=== PATIENT | male | born 1955 | race Caucasian/White ===

== ENCOUNTER → 2023-08-16 | Outpatient (CLI) | payer MEDICARE ==
--- NOTE | 2023-08-16 08:08 | XR ---
EXAMINATION TYPE: XR orbit detect foreign body DATE OF EXAM: 08/16/2023 COMPARISON: NONE HISTORY: Pre-MRI orbits TECHNIQUE: 3 views FINDINGS: 3 views of the orbits fail to demonstrate evidence for radiopaque foreign body. The patient is cleared for MRI. Paranasal sinuses as visualized appear to be clear. IMPRESSION: The patient is cleared for MRI.
--- NOTE | 2023-08-16 14:44 | MR ---
EXAMINATION TYPE: MR Prostate wo/w con DATE OF EXAM: 08/16/2023 9:42 AM COMPARISON: None. CLINICAL INDICATION:Male, 67 years old with history of R97.20 ELEVATED PSA; Elevated PSA. TECHNIQUE: Multi-planar, multi-sequence imaging of the pelvis is performed prior to and following the uncomplicated administration of bolus intravenous gadolinium. CONTRAST: 9 Gadavist Interpretive Criteria: PI-RADS v2.1 SERUM PSA: 10.8 on 06/25/2023. SURGICAL PATHOLOGY: No data available. FINDINGS: Prostatic dimensions: 7.1 x 7.4 x 5.7 cm. Ellipsoid Volume:156.81 (PSA density=0.07 ng/mL/mL) CENTRAL GLAND (Central and Transition Zones/CZ+TZ): Heterogenous area within the right central gland mid gland of higher somewhat ill-defined DWI signal low ADC and low T2 signal Median lobe hypertrophy with protrusion into the base of the bladder. (PI- RADS 2) PERIPHERAL ZONE (PZ): Thinning bilaterally due to BPH, No evidence of masslike abnormality, or localized perfusional hyperv ascularity, to further suggest a focus of clinically significant prostate cancer. (PI-RADS 2) SEMINAL VESICLES (SV): Symmetric and unremarkable. PERIPROSTATIC TISSUES: Unremarkable. LYMPH NODES: No enlarged pelvic lymph node. REMAINING PELVIS: Distended urinary bladder with multiple diverticula and trabecular lesions. No abnormal free or organized intrapelvic fluid collection. No pathologic bowel dilation or mural thickening. Large right inguinal hernia containing loops of large and small bowel. Small left fat-containing ingu inal hernia. OSSEOUS STRUCTURES: No suspicious osseous abnormality. IMPRESSION: 1. PI-RADS 3 lesion in the right mid central gland measuring 16 x 13 mm. Tissue sampling recommended. 2. Substantial BPH, estimated gland volume 156.81 mL. 4. Distended urinary bladder with trabeculation/diverticula likely from chronic bilateral obstruction . 5. Large right inguinal hernia containing loops of small and large bowel.
== END | disposition home or self-care (01) ==
LOC: RADMRIMAIN 07:42
PROVIDERS: ATTEND Urology
DX: R97.20 Elevated prostate specific antigen [PSA] (principal); N40.0 Benign prostatic hyperplasia without lower urinary tract symptoms; K40.90 Unilateral inguinal hernia, without obstruction or gangrene, not specified as recurrent; N32.89 Other specified disorders of bladder
CPT/HCPCS: 70030; 72197; A9585

== ENCOUNTER → 2023-09-30 | Day surgery (SDC) | payer MEDICARE ==
[2023-09-28 10:38] VITALS: BMI 27.3
--- NOTE | 2023-09-28 18:33 | P.GSHP ---
History of Present Illness H&P Date: 09/28/23 Chief Complaint: Elevated PSA level The patient is a 67-year-old white male with no family history of prostate cancer. His PSA level has been persistently elevated and was 10.80 in June 2023. Repeat PSA level in August 2023 was 5.24. He reports obstructive voiding symptoms and has been found to empty his bladder incompletely. Cystoscopy shows an obstructing prostate with a bilobar configuration, and he has been instructed to perform intermittent self-catheterization. MRI of the prostate reveals a prostate volume of 157 cc, with a PI-RADS 3 lesion within the right central zone. - Cardiovascular Cardiovascular: Reports high blood pressure - Genitourinary (Male) Genitourinary: Reports nocturia Past Medical History Past Medical History: GERD/Reflux, Hyperlipidemia, Hypertension, Prostate Disorder Additional Past Medical History / Comment(s): "The says I have a really enlarged prostate""He wants to make sure it isn't cancer." History of Any Multi-Drug Resistant Organisms: None Reported Additional Past Surgical History / Comment(s): Cystocopy Past Anesthesia/Blood Transfusion Reactions: No Reported Reaction Additional Past Anesthesia/Blood Transfusion Reaction / Comment(s): ++No hx of having anesthesia. No hx of blood transfusion. Smoking Status: Never smoker - Past Family History Brother(s) Family Medical History: Cancer Additional Family Medical History / Comment(s): 4 brothers had cancer. Esophageal, brain, lung in 2 brothers. One brother kidney cancer. Sister(s) Family Medical History: Cancer Additional Family Medical History / Comment(s): Uterine cancer. Medications and Allergies Home Medications Medication Instructions Recorded Confirmed Type Antibiotic (Unknown Dose) 1 dose PO QAM 09/28/23 09/28/23 History Aspirin EC [Ecotrin Low Dose] 81 mg PO QAM 09/28/23 09/28/23 History Atorvastatin [Lipitor] 20 mg PO QAM 09/28/23 09/28/23 History Cranberry Supp(Unknown Dose) 1 dose PO QAM 09/28/23 09/28/23 History Lisinopril-Hctz 20-25 mg 20 - 25 mg PO QAM 09/28/23 09/28/23 History [Zestoretic 20-25] Multi Vit (Unknown Dose) 1 dose PO QAM 09/28/23 09/28/23 History Tamsulosin HCl [Flomax] 0.4 mg PO HS 09/28/23 09/28/23 History Zinc (Unknown Dose) 1 dose PO QAM 09/28/23 09/28/23 History Allergies Allergy/AdvReac Type Severity Reaction Status Date / Time No Known Allergies Allergy Verified 09/28/23 11:42 Surgical - Exam - General well developed, well nourished, no distress - Respiratory normal respiratory effort - Abdomen Abdomen: soft, non tender, no guarding, no rigid, no rebound Hernia: inguinal - Genitourinary normal penis with no external lesions, testicles non-tender - Rectum Rectum: normal sphincter tone, no masses, other (Prostate enlarged and smooth) - Psychiatric oriented to time, oriented to person, oriented to place, speech is normal, memory intact Assessment and Plan (1) Elevated prostate specific antigen [PSA] Status: Acute Code(s): R97.20 - ELEVATED PROSTATE SPECIFIC ANTIGEN [PSA] SNOMED Code(s): 731152824 Plan: The patient will undergo MRI-Ultrasound fusion transrectal biopsies of the prostate. The procedure has been reviewed in detail with the patient. He has been made aware of potential risks, which include anesthesia, bleeding, and infection. He is also aware that a negative biopsy does not completely rule out prostate cancer.
[~2023-09-30] MED LIST: KETAMINE HCL IN 0.9 % NACL 50 MG/5 ML SYRINGE ONE; LEVOFLOXACIN 500MG-D5W PMX 500 MG in DEXTROSE/WATER 1 100ML.BAG IVPB STA; MIDAZOLAM 2 MG/2 ML VIAL ONE; PROPOFOL 10 MG/ML 20 ML VIAL IV ONE; fentaNYL (PF) 50 MCG/ML 2 ML AMP ONE
[2023-09-30] MEDS: LACTATED RINGERS 1,000 ML IV SCH (10:37)
[2023-09-30] MEDS: GENTAMICIN 40 MG/ML 2 ML VIAL IM PRN (10:50)
[2023-09-30 11:13] VITALS: TEMP 97.1
[2023-09-30] MEDS: LEVOFLOXACIN 750MG-D5W PMX 750 MG/150 ML BAG IVPB ONE (12:35)
--- NOTE | 2023-09-30 13:12 | P.OP ---
Date of Procedure: 09/30/23 Preoperative Diagnosis: Elevated PSA level Postoperative Diagnosis: Same Procedure(s) Performed: MRI ultrasound-guided fusion biopsies of the prostate Anesthesia: MAC Surgeon: Marino Bey Estimated Blood Loss (ml): 5 IV fluids (ml): 500 Condition: stable Disposition: PACU Indications for Procedure: The patient is a 67-year-old white male with no family history of prostate cancer. His PSA level has been persistently elevated and was 10.80 in June 2023. Repeat PSA level in August 2023 was 5.24. He reports obstructive voiding symptoms and has been found to empty his bladder incompletely. Cystoscopy shows an obstructing prostate with a bilobar configuration, and he has been instructed to perform intermittent self-catheterization. MRI of the prostate reveals a prostate volume of 157 cc, with a PI-RADS 3 lesion within the right central zone. Operative Findings: BPH. No hypoechoic lesions seen. Description of Procedure: The patient was taken to the operating room and placed in the left lateral decubitus position. ZAN revealed the prostate to be enlarged but smooth. The Ulthera transrectal ultrasound probe was placed intrarectally. It was then placed within the stand of the [employer] MRI/TRUS Fusion for Prostate Biopsy system. The prostate was imaged in both the axial and sagittal planes, revealing a prostate volume of 143.9 mL. Using the Biopty gun, 3 biopsies were obtained from the target lesion located within the right mid anterior transitional zone. The remaining 12 biopsies of the peripheral zone were obtained utilizing a standard template. Once the procedure was completed, the ultrasound probe was removed. The patient tolerated the procedure well was taken to the recovery room stable condition.
[2023-09-30 14:08] VITALS: BP 116/74; PULSE 63
[2023-09-30 14:09] VITALS: RESP 20
== END | disposition home or self-care (01) ==
LOC: OR 10:04
PROVIDERS: ATTEND Urology
DX: N40.1 Benign prostatic hyperplasia with lower urinary tract symptoms (principal); N13.8 Other obstructive and reflux uropathy; I10 Essential (primary) hypertension; E78.5 Hyperlipidemia, unspecified; K21.9 Gastro-esophageal reflux disease without esophagitis; Z80.1 Family history of malignant neoplasm of trachea, bronchus and lung; Z79.82 Long term (current) use of aspirin; Z79.899 Other long term (current) drug therapy
CPT/HCPCS: 55700; 88305; J2250; J1580; J3010; J1956; J2704

== ENCOUNTER 2023-10-27 08:01 | Day surgery (SDC) | payer MEDICARE ==
[2023-10-26 09:27] VITALS: BMI 27.2
[2023-10-27] MEDS ORDERED: HYDROmorphone 0.5 MG/0.5 ML SYRINGE IVP PRN (08:16)
[2023-10-27] MEDS ORDERED: fentaNYL (PF) 50 MCG/ML 2 ML AMP IVP PRN (08:16)
[2023-10-27] MEDS ORDERED: LIDOCAINE 1% (10MG/ML) FOR IV START INTRADERMA PRN (08:16)
[2023-10-27] MEDS: IV FLUID CONTINUATION 1,000 ML IV ONE ×2 (08:30→14:50)
[2023-10-27] MEDS: LACTATED RINGERS 1,000 ML IV SCH (08:30)
[2023-10-27] MEDS: ACETAMINOPHEN TAB 500 MG TAB PO PRN (08:49)
[2023-10-27] MEDS: ONDANSETRON 4 MG/2 ML VIAL IVP ONE (08:50)
[2023-10-27] MEDS: DEXAMETHASONE SOD PHOSPHATE 4 MG/ML 1 ML VIAL IV ONE (08:50)
[2023-10-27] MEDS: MIDAZOLAM 2 MG/2 ML VIAL IV PRN (08:57)
--- NOTE | 2023-10-27 09:11 | P.ANPRN ---
Procedure Note - Anesthesia - Nerve Block Performed Right Erector Spinae Single Time Out Performed: Yes Date of Procedure: 10/27/23 Procedure Start Time: 08:56 Procedure Stop Time: 09:01 Location of Patient: PreOp Indication: Acute Post-Operative Pain, Analgesia, Requested by Surgeon Sedation Type: Sedate with meaningful contact maintained Preparation: Sterile Prep Position: Prone Needle Types: Pajunk Needle Gauge: 21 Ultrasound used to visualize needle placement: Yes Ultrasound used to observe medication spread: Yes Injectate: 0.5% Ropivacaine (see comment for volume) (Ropiv 20 ml+decadron 4mg. AttemptX1. T11 level needle) Blood Aspirated: No Pain Paresthesia on Injection Noted: No Resistance on Injection: Normal Image Stored and Saved: Yes Events: Uneventful and Well Tolerated
[2023-10-27] MEDS: HEPARIN SODIUM,PORCINE 5,000 UNIT/ML 1 ML VIAL SQ PRN (09:17)
[2023-10-27] MEDS ORDERED: PROPOFOL 10 MG/ML 20 ML VIAL IV ONE (09:45)
[2023-10-27] MEDS ORDERED: ROPIVACAINE 5 MG/ML 30 ML VIAL ONE (09:45)
[2023-10-27] MEDS ORDERED: KETOROLAC 15 MG/ML 1 ML VIAL ONE (09:45)
[2023-10-27] MEDS ORDERED: LIDOCAINE 1% INJ 10MG/ML (20 ML MDV) ONE (09:45)
[2023-10-27] MEDS ORDERED: ePHEDrine 50 MG/ML 1 ML VIAL ONE (09:45)
[2023-10-27] MEDS ORDERED: fentaNYL (PF) 50 MCG/ML 2 ML AMP ONE (09:45)
[2023-10-27] MEDS ORDERED: NEOSTIGMINE 1 MG/ML 10 ML VIAL ONE (09:45)
[2023-10-27] MEDS ORDERED: PHENYLEPHRINE-0.9% NACL SYG 1,000 MCG/10 ML SYRINGE ONE (09:45)
[2023-10-27] MEDS ORDERED: KETAMINE HCL IN 0.9 % NACL 50 MG/5 ML SYRINGE ONE (09:45)
[2023-10-27] MEDS ORDERED: GLYCOPYRROLATE 0.2 MG/ML 2 ML VIAL ONE (09:45)
[2023-10-27] MEDS ORDERED: ROCURONIUM 10 MG/ML (5 ML VIAL) IV ONE (09:45)
[2023-10-27] MEDS ORDERED: SUCCINYLCHOLINE CHLORIDE 200 MG/10 ML VIAL IV ONE (09:45)
--- NOTE | 2023-10-27 11:02 | P.OP ---
Date of Procedure: 10/27/23 Preoperative Diagnosis: incarcerated right inguinal hernia Postoperative Diagnosis: incarcerated massive right inguinal hernia Procedure(s) Performed: open repair of incarcerated right inguinal hernia Orchiectomy Anesthesia: TRI Surgeon: Pavel Casanova Estimated Blood Loss (ml): 5 Pathology: other (right orchiectomy) Condition: stable Disposition: PACU Description of Procedure: the patient's placed on the operating table in the supine position. He received general endotracheal tube anesthesia. His abdomen was prepped and draped usual fashion. A standard hernia incision was made over the right external ring. Using blunt dissection with cautery the subcutaneous tissue divided. The fascia external oblique was then opened. The patient had a very large hernia. The cord structures and sac were brought up in the wound. The patient had a very large defect. It is set up for me orchiectomy with the hernia repair due to the size of the fascial opening. At this point the hernia sac and spermatic cord underwent a high ligation. The sac was closed with 0 Vicryl stick tie. Next a piece of Prolene mesh was placed over top of the hernia and secured with 2-0 Prolene to the shelving edge of the ilioinguinal ligament. And then Todd'stubercle. The fascia external oblique was then closed with 0 Vicryl suture. A CARLITO drains placed the scrotum and brought out through separate stab incision. Fadi's fascia was closed with 2-0 Vicryl. Skin closed frank. Patipatient tolerated procedure well. He was sent to recovery in stable condition.
[2023-10-27 11:04] VITALS: TEMP 98.6
[2023-10-27] MEDS: IV FLUID CONTINUATION 800 ML IV ONE (12:24)
[2023-10-27 12:29] VITALS: RESP 20
[2023-10-27] MEDS: TAMSULOSIN 0.4 MG CAP.ER.24H PO STA (14:19)
[2023-10-27 15:43] VITALS: BP 134/76; PULSE 76
== END 2023-10-27 15:57 | disposition home or self-care (01) ==
LOC: OR 08:01 → 4SSUR 10:58 → OR 15:57
PROVIDERS: ATTEND Surgery
DX: K40.30 Unilateral inguinal hernia, with obstruction, without gangrene, not specified as recurrent (principal); G89.18 Other acute postprocedural pain; I10 Essential (primary) hypertension; N42.9 Disorder of prostate, unspecified; Z79.899 Other long term (current) drug therapy
CPT/HCPCS: 64999; 88305; 49507; C1781; J2250; J0330; J1644; J1100; J2710; J0690; J2405; J2001; J3010; J2795; J1885; J2704; J2371

== ENCOUNTER → 2024-01-05 | Outpatient (CLI) | payer MEDICARE ==
[2024-01-05 18:22] LABS: Basophils # (A) 0.03 X 10*3/uL (0.00-0.10); Basophils % (A) 0.5 %; Eosinophils # (A) 0.11 X 10*3/uL (0.04-0.35); Eosinophils % (A) 1.8 %; HCT 37.6 % (39.6-50.0); HGB 11.9 g/dL (13.0-17.0); Lymphocytes # (A) 1.37 X 10*3/uL (0.90-5.00); Lymphocytes % (A) 22.6 %; MCH 26.7 pg (27.0-32.0); MCHC 31.6 g/dL (32.0-37.0); MCV 84.3 FL (80.0-97.0); Mean Platelet Volume 11.1 FL (9.5-12.2); Monocytes # (A) 0.49 X 10*3/uL (0.20-1.00); Monocytes % (A) 8.1 %; NRBC Per 100 WBC 0 X 10*3/uL (0.00-0.01); Neutrophils # (A) 4.05 X 10*3/uL (1.80-7.70); Neutrophils % (A) 66.8 %; Platelet Count 222 X 10*3/uL (140-440); RBC 4.46 X 10*6/uL (4.40-5.60); RDW 14.6 % (11.5-14.5); WBC 6.06 X 10*3/uL (4.50-10.00)
[2024-01-05 18:34] LABS: Appearance,Urine Cloudy (Clear); Bilirubin,Urine Negative (Negative); Blood,Urine Small (Negative); Color,Urine Yellow (Yellow); Ketones,Urine Negative (Negative); Nitrite,Urine Negative (Negative); PH, Urine 6.5; Specific Gravity,Urine 1.009 (1.001-1.030); Urobilinogen,Urine 0.2 E.U./DL
[2024-01-05 18:41] LABS: Bacteria,Urine None Seen (None Seen)
[2024-01-05 18:54] LABS: BUN/Creat Ratio 17.09 Ratio (12.00-20.00); Blood Urea Nitrogen 18.8 mg/dL (9.0-27.0); Calcium 9.6 mg/dL (8.7-10.3); Carbon Dioxide 25.7 mmol/L (21.6-31.8); Chloride 105 mmol/L (96-109); Glucose 92 mg/dL (70-110); Potassium 4.7 mmol/L (3.5-5.5); Sodium 141 mmol/L (135-145)
== END | disposition home or self-care (01) ==
LOC: LABPAT 12:58
PROVIDERS: ATTEND Urology
DX: Z01.812 Encounter for preprocedural laboratory examination (principal); N40.1 Benign prostatic hyperplasia with lower urinary tract symptoms
CPT/HCPCS: 36415; 80048; 81001; 85025; 86850; 86900; 86901; 87077; 87086; 87186

== ENCOUNTER 2024-01-13 05:31 | Day surgery (SDC) | payer MEDICARE ==
[2024-01-07 11:12] VITALS: BMI 27.2
--- NOTE | 2024-01-12 20:19 | P.HPIHPCON ---
History of Present Illness H&P Date: 01/12/24 Chief Complaint: BPH This is a 68-year-old male with history of 146 g prostate, history of incomplete bladder emptying secondary to his prostate size, option of a robotic simple prostatectomy versus a HoLEP was discussed with him in detail, he agreed to proceed with a robotic simple prostatectomy, aware the risk which includes but not limited to bleeding, infection, urinary incontinence, erectile dysfunction, retrograde ejaculation, persistent incomplete emptying. Risk of injury to nearby organs was also discussed, he understood all the risk and agreed to proceed Consent for Procedure: I have explained the operation/procedure to the patient, including the risks, benefits, side effects, alternative therapies (including not receiving the proposed treatment or service), the likelihood of the patient achieving his/her goals, and potential recuperation problems for the procedure/sedation/analgesia, as well as any blood products, if indicated. I also explained to the patient the risks, benefits and side effects of the alternatives, as well as the risks related to not receiving the proposed procedure, care, treatment, or services. Past Medical History Past Medical History: GERD/Reflux, Hyperlipidemia, Hypertension, Prostate Disorder Additional Past Medical History / Comment(s): Enlarged prostate. Pt states the Dr. wants him to self cath 4 times a day but pt chooses to self cath once daily. History of Any Multi-Drug Resistant Organisms: None Reported Past Surgical History: Hernia Repair Additional Past Surgical History / Comment(s): Cystocopy, prostate biopsies. Inguinal Hernia repair 2 months ago. Past Anesthesia/Blood Transfusion Reactions: No Reported Reaction Additional Past Anesthesia/Blood Transfusion Reaction / Comment(s): No hx of blood transfusion. Smoking Status: Never smoker - Past Family History Brother(s) Family Medical History: Cancer, Deep Vein Thrombosis (DVT) Additional Family Medical History / Comment(s): 4 brothers had cancer. Esophageal, brain, lung in 2 brothers. One brother kidney cancer. One brother blood clot in leg. Sister(s) Family Medical History: Cancer Additional Family Medical History / Comment(s): Uterine cancer. Medications and Allergies Home Medications Medication Instructions Recorded Confirmed Type Aspirin EC [Ecotrin Low Dose] 81 mg PO QAM 09/28/23 01/07/24 History Atorvastatin [Lipitor] 20 mg PO QAM 09/28/23 01/07/24 History Lisinopril-Hctz 20-25 mg 20 - 25 mg PO QAM 09/28/23 01/07/24 History [Zestoretic 20-25] Tamsulosin HCl [Flomax] 0.4 mg PO HS 09/28/23 01/07/24 History Multivitamins, Thera [Multivitamin 1 tab PO QAM 10/26/23 01/07/24 History (formulary)] Allergies Allergy/AdvReac Type Severity Reaction Status Date / Time No Known Allergies Allergy Verified 01/07/24 10:56 Surgical - Exam - General no distress, no no pain - Eyes normal ocular movement, no pale - ENT normal nares, normal mucosa - Respiratory normal expansion, normal respiratory effort - Abdomen Abdomen: soft, non tender Assessment and Plan Assessment: OR for robotic simple prostatectomy
[2024-01-13] MEDS: IV FLUID CONTINUATION 1,000 ML IV ONE ×2 (06:30→06:40)
[2024-01-13] MEDS: LACTATED RINGERS 1,000 ML IV SCH (06:30)
[2024-01-13] MEDS: LIDOCAINE 1% (10MG/ML) FOR IV START INTRADERMA ONE (06:47)
[2024-01-13] MEDS: DEXAMETHASONE SOD PHOSPHATE 4 MG/ML 1 ML VIAL IVP PRN (06:48)
[2024-01-13] MEDS: ONDANSETRON 4 MG/2 ML VIAL IVP ONE (06:48)
[2024-01-13] MEDS ORDERED: HYDROmorphone 0.5 MG/0.5 ML SYRINGE IVP PRN (07:00)
[2024-01-13] MEDS: MIDAZOLAM 2 MG/2 ML VIAL IV ONE (07:00)
[2024-01-13] MEDS ORDERED: MIDAZOLAM 2 MG/2 ML VIAL ONE (07:25)
[2024-01-13] MEDS ORDERED: ROPIVACAINE 5 MG/ML 30 ML VIAL ONE (07:25)
[2024-01-13] MEDS ORDERED: KETAMINE HCL IN 0.9 % NACL 50 MG/5 ML SYRINGE ONE (07:25)
[2024-01-13] MEDS ORDERED: PHENYLEPHRINE 10 MG/ML VIAL ONE (07:25)
[2024-01-13] MEDS ORDERED: SUCCINYLCHOLINE CHLORIDE 200 MG/10 ML VIAL IV ONE (07:25)
[2024-01-13] MEDS ORDERED: DEXAMETHASONE SOD PHOSPHATE 4 MG/ML 1 ML VIAL ONE (07:25)
[2024-01-13] MEDS ORDERED: ROCURONIUM 10 MG/ML (5 ML VIAL) IV ONE (07:25)
[2024-01-13] MEDS ORDERED: SODIUM CHLORIDE 0.9% (PF) 10 ML VIAL ONE (07:25)
[2024-01-13] MEDS ORDERED: fentaNYL (PF) 50 MCG/ML 2 ML AMP ONE (07:25)
[2024-01-13] MEDS ORDERED: GLYCOPYRROLATE 0.2 MG/ML 2 ML VIAL ONE (07:25)
[2024-01-13] MEDS ORDERED: NEOSTIGMINE 1 MG/ML 10 ML VIAL ONE (07:25)
[2024-01-13] MEDS ORDERED: PROPOFOL 10 MG/ML 20 ML VIAL IV ONE (07:25)
[2024-01-13] MEDS ORDERED: HYDROmorphone (PF) 1 MG/ML ONE (07:25)
[2024-01-13] MEDS ORDERED: LIDOCAINE 1% INJ 10MG/ML (20 ML MDV) ONE (07:25)
[2024-01-13] MEDS: HEPARIN SODIUM,PORCINE 5,000 UNIT/ML 1 ML VIAL SQ STA (07:28)
[2024-01-13] MEDS ORDERED: HYDROmorphone 1 MG/ML 1 ML SYRINGE IVP PRN (07:45)
[2024-01-13] MEDS ORDERED: ONDANSETRON 4 MG/2 ML VIAL IVP PRN (07:45)
[2024-01-13] MEDS ORDERED: HYDROcodone/APAP 5-325MG 1 EACH TAB PO PRN (07:47)
[2024-01-13] MEDS: BUPIVACAINE (PF) 0.25% 30 ML VIAL SQ ONE (08:43)
[2024-01-13] MEDS: GENTAMICIN 80 MG in SODIUM CHLORIDE 0.9% 200 ML IRRIGATION ONE (08:44)
--- NOTE | 2024-01-13 12:38 | P.OP ---
Date of Procedure: 01/13/24 Preoperative Diagnosis: BPH Postoperative Diagnosis: Same Procedure(s) Performed: Robotic assisted laparoscopic simple prostatectomy Implants: None Anesthesia: TRI Surgeon: Liam Palacios Estimated Blood Loss (ml): 100 Pathology: other (Prostate adenoma) Condition: stable Disposition: PACU Indications for Procedure: This is a 68-year-old male with history of 146 g prostate, history of incomplete bladder emptying secondary to his prostate size, option of a robotic simple prostatectomy versus a HoLEP was discussed with him in detail, he agreed to proceed with a robotic simple prostatectomy, aware the risk which includes but not limited to bleeding, infection, urinary incontinence, erectile dysfunction, retrograde ejaculation, persistent incomplete emptying. Risk of injury to nearby organs was also discussed, he understood all the risk and agreed to proceed Description of Procedure: After preoperative antibiotics were started, the patient was taken to the operating room. Anesthesia was induced and the patient was placed in a supine position with adequate padding of the pressure points, shoulders, back, legs and arms. He was then prepped and draped in the standard fashion. A critical pause was performed using two patient identifiers. A 16F eng catheter was placed to gravity drainage. A pneumoperitoneum was obtained using a Veress needle, after pneumoperitoneum was obtained a 8 mm camera port was placed. Under direct vision a 8mm robotic ports was placed lateral to each rectus slightly below the camera port. The left iliac fossa 8mm port was placed. The right technical administrative assistant right iliac fossa 12mm port and right paramedian 5mm portwere placed. After the patient was placed in the trendelenberg position, the robot was then docked to the 8mm robotic ports and then each robotic arm and tower was checked in relation to the patient's legs and hands to avoid inadvertent compression. The peritoneal cavity was inspected. Adhesions were taken down along the left lower quadrant An inverted U-shaped incision began laterally to the left medial umbilical ligament and extended high across the midline to the right umbilical ligament. The limbs of the "U" extended to the level of the vasa on both sides. We next developed the preperitoneal space and the space of Retzius. Cautery was used to dissected the bladder away from the prostate, the incision was made in close proximity to the prostate, and incision was extended laterally and at this point the plane between the adenoma and the surgical capsule is identified. Both ureteral orifices were identified and neither was injured during the dissection . The adenoma was dissected off of the capsule by combination of blunt dissection and minimum cautery. dissection was initially started along the anterior surface and posterior surface of adenoma, and this was carried laterally. The dissection was carried to the apex, at this point the urethral-prostatic junction was visualized and the prostate was transected at the junction. Prostate adenoma was placed in an endocatch bag . A 9and 9 inch 3-0 V-Lock suture was used to anastomose the urethra and bladder, starting at the 6:00 posterior position. Mucosa was secured in every stitch, to ensure a mucosa to mucosa anastomosis. The stitch was regularly cinched and the anastomosis tightened. . The 20 Fr Eng catheter was advanced, the bladder filled, and the anastomosis was tested. Anastomsis was watertight at 150 mL. balloon was inflated to 10 mL The robot was undocked. specimen was extracted from the supraumbilical incision. The periumbilical fascia was closed with 1-0-PDS suture in figure of 8 fashion. All ports were closed with a subcuticular 4-0 monocryl and Dermabond. Sponge, instrument, and needle counts were correct at the end of the case x2. The patient tolerated the surgery well and without complication. He awoke without difficulty and was taken to the recovery room in stable condition
[2024-01-13] MEDS: KETOROLAC 15 MG/ML 1 ML VIAL IVP SCH (13:51)
[2024-01-13] MEDS: ATORVASTATIN 20 MG TAB PO SCH (14:32)
[2024-01-13] MEDS: D5-0.45% NACL WITH KCL 20MEQ/L 1,000 ML IV SCH (15:27)
[2024-01-13] MEDS: HEPARIN SODIUM,PORCINE 5,000 UNIT/ML 1 ML VIAL SQ SCH (15:27)
[2024-01-14 07:30] VITALS: BP 118/64; PULSE 67; RESP 20; TEMP 98.4
[2024-01-14] MEDS ORDERED: LISINOPRIL-HCTZ 20-25 MG 1 EACH TAB PO SCH (09:00)
--- NOTE | 2024-01-14 21:56 | P.DS ---
Providers Attending physician: Liam Palacios MD Primary care physician: Stated None Hospital Course: This is a 68-year-old male with history of incomplete bladder emptying, underwent a robotic simple prostatectomy on January 12. Please see op note dated January 12 for surgery details. Patient was admitted to the hospital postoperatively. He did well postoperatively, he was discharged home on postop day #1 with the Tate catheter, at time of discharge he was tolerating a diet, ambulating, pain was controlled Plan - Discharge Summary Discharge Rx Participant: No New Discharge Prescriptions: New Ketorolac [Toradol] 10 mg PO Q6HR PRN #15 tab PRN Reason: Pain No Action Tamsulosin HCl [Flomax] 0.4 mg PO HS Lisinopril-Hctz 20-25 mg [Zestoretic 20-25] 20 - 25 mg PO QAM Multivitamins, Thera [Multivitamin (formulary)] 1 tab PO QAM Atorvastatin [Lipitor] 20 mg PO QAM Aspirin EC [Ecotrin Low Dose] 81 mg PO QAM Discharge Medication List Aspirin EC [Ecotrin Low Dose] 81 mg PO QAM 09/28/23 [History] Atorvastatin [Lipitor] 20 mg PO QAM 09/28/23 [History] Lisinopril-Hctz 20-25 mg [Zestoretic 20-25] 20 - 25 mg PO QAM 09/28/23 [History] Tamsulosin HCl [Flomax] 0.4 mg PO HS 09/28/23 [History] Multivitamins, Thera [Multivitamin (formulary)] 1 tab PO QAM 10/26/23 [History] Ketorolac [Toradol] 10 mg PO Q6HR PRN #15 tab 01/14/24 [Rx] Follow up Appointment(s)/Referral(s): Liam Palacios MD [STAFF PHYSICIAN] - 1 Week Discharge Disposition: HOME SELF-CARE
--- NOTE | 2024-01-25 11:54 | P.ANPRN ---
Procedure Note - Anesthesia - Nerve Block Performed Bilateral Erector Spinae Single Time Out Performed: Yes Date of Procedure: 01/13/24 Procedure Start Time: :00 Procedure Stop Time: :05 Location of Patient: PreOp Indication: Acute Post-Operative Pain, Requested by Surgeon Sedation Type: Sedate with meaningful contact maintained Preparation: Sterile Prep Position: Prone Needle Types: Pajunk Needle Gauge: 21 Ultrasound used to visualize needle placement: Yes Ultrasound used to observe medication spread: Yes Blood Aspirated: No Pain Paresthesia on Injection Noted: No Resistance on Injection: Normal Image Stored and Saved: Yes Events: Uneventful and Well Tolerated (Ropivacaine 0.5% 15 cc plus normal saline 10 cc plus dexamethasone 4 mg given bilaterally at L1)
== END 2024-01-14 11:01 | disposition home or self-care (01) ==
LOC: OR 05:31 → 4SSUR 11:08 → OR 01-14 11:01
PROVIDERS: ATTEND Urology
DX: N40.0 Benign prostatic hyperplasia without lower urinary tract symptoms (principal); G89.18 Other acute postprocedural pain; K21.9 Gastro-esophageal reflux disease without esophagitis; I10 Essential (primary) hypertension; E78.5 Hyperlipidemia, unspecified; Z79.82 Long term (current) use of aspirin; Z80.1 Family history of malignant neoplasm of trachea, bronchus and lung; Z98.890 Other specified postprocedural states
CPT/HCPCS: 55867; S2900; 88307; 94760